=== PATIENT | male | born 1960 ===

== ENCOUNTER 2019-10-22 11:34 | Inpatient (IN) ==
--- NOTE | 2019-10-12 10:36 | Anesthesiology Consultation ---
Date of Service October 12, 2019 Assessment & Plan (1) Encounter for pre-operative examination: Per PAT assessment on 10/11: Travel screen- took mother to oncology appt in [place] 1 week ago (followed COVID precaution guidelines diligently). No travel plans plans prior to surgery. No known COVID-19 positive contacts. No current COVID-19 related symptoms. Surgeon arranging preop COVID testing (10/16, at surgeon's office). Awaiting results. Chart Review Chart Review: Acceptable Risk for Surgery (pending surgeon-ordered PCP clearance scheduled 10/17 (Dr. Rollins)) and Patient seen in Pre Admission Testing Teaching & Discussion Pre-Anesthesia Teaching/Discussion Notes: Instructed NPO after midnight before surgery,except medications with 15 cc of water. Medication instructions provided according to the PAT guidelines. History Surgery Operation Date: 10/22/19 13:30 Proposed Procedures p Right Total Shoulder Arthroplasty - Gualberto Barlow MD Height/Weight Height: 5 ft 10 in Weight: 86.7 kg Allergies Allergy/AdvReac Type Severity Reaction Status Date / Time No Known Allergies Allergy Verified 10/10/19 13:22 Medications Home Medications Medication Instructions Recorded Confirmed Last Taken No Known Home Medications 10/10/19 10/10/19 Unknown Past Medical History Medical History History of basal cell carcinoma History of kidney stones Iron deficiency anemia Osteoarthritis Exercise / Class Metabolic Activity II 4-5 Yardwork/Stairs/Walk up hill Past Family History Family History Other No family history of adverse response to anesthesia Past Surgical History Surgical History History of arthroscopy of left knee History of cystoscopy w/ stone extraction History of Mohs micrographic surgery for skin cancer History of tooth extraction History of vasectomy Past Anesthesia History No Family Hx of Anesthesia Complications and Other ("slow to wake") History of PONV No Hx of Motion Sickness and History of PONV Social History Smoking Status: Never smoker Do You Dip or Chew Tobacco: No Hx Alcohol Use: No Hx Substance Use: No substance use type: does not use Review of Systems Patient denies chest pain, shortness of breath, dyspnea on exertion, cough, wheezing, palpitations. Physical Exam Vital Signs VITALS BP 124/70 P 50 (good functional status, asymptomatic) TEMP 98.1 SP02 98%RA RESP 18 PHYSICAL Full neck and c-spine range of motion. Full TMJ range of motion. TMD 3 finger breaths Mallampati Score 3 Dentition: full dentures upper/lower Lungs: clear throughout to auscultation Cardiac: regular rate and rhythm, no murmurs noted Spine: normal Carotid arteries: negative bruit Extremities: no edema Testing Laboratory Results 10/12/19 11:12 10/12/19 11:12 PT 11.1 Seconds (9.0-12.0) 10/12/19 11:12 INR 1.1 (0.9-1.1) 10/12/19 11:12 APTT 31.9 Seconds (21.0-31.0) H 10/12/19 11:12 Hemoglobin A1c 5.5 % (4.5-5.6) 10/12/19 11:12 Urine Color Yellow 10/12/19 11:12 Urine Appearance Clear (Clear) 10/12/19 11:12 Urine pH 5.0 (4.5-7.5) 10/12/19 11:12 Ur Specific Anderson 1.015 (1.000-1.030) 10/12/19 11:12 Urine Protein Negative (Negative) 10/12/19 11:12 Urine Glucose (UA) Negative (Negative) 10/12/19 11:12 Urine Ketones Negative (Negative) 10/12/19 11:12 Urine Nitrite Negative (Negative) 10/12/19 11:12 Ur Leukocyte Esterase Negative (Negative) 10/12/19 11:12 Blood Type O Positive 10/12/19 11:12 Antibody Screen NEGATIVE 10/12/19 11:12 Electrocardiogram Date: 10/12/19 SB at 47bpm. Chest X-Ray Date: 10/12/19 Findings: + NAD
[2019-10-12 11:51] LABS: Basophils # (auto) 0.04 K/uL (0-0.2); Basophils % (auto) 0.8 %; Eosinophils # (auto) 0.19 K/uL (0-0.5); Eosinophils % (auto) 3.8 %; Hematocrit (blood only) 39.3 % (42-52); Hemoglobin 13.4 g/dL (14.0-18.0); Lymphocytes # (auto) 2.12 K/uL (1.2-3.4); Lymphocytes % (auto) 42.7 %; Mean Corpuscular Hemoglobin 31.2 pg (25-34); Mean Corpuscular Hgb Conc 34.1 g/dL (32-36); Mean Corpuscular Volume 91.6 fL (80-100); Mean Platelet Volume 10.9 fL (7.4-10.4); Monocytes # (auto) 0.35 K/uL (0.11-0.59); Monocytes % (auto) 7.1 %; Neutrophils # (auto) 2.26 K/uL (1.4-6.5); Neutrophils % (auto) 45.6 %; Platelet Count 197 K/uL (130-400); RDW Standard Deviation 43.3 fL (36.4-46.3); Red Blood Count 4.29 M/uL (4.7-6.1); White Blood Count 4.96 K/uL (4.8-10.8)
--- NOTE | 2019-10-12 11:51 | XRay Report ---
XR chest Pre-admission PA/Lat CLINICAL HISTORY: Preoperative chest COMPARISON STUDY: No previous studies for comparison. FINDINGS: The cardiac and mediastinal contours are normal. There is no evidence of focal pulmonary co nsolidation. There is no evidence of failure. No pleural effusions are visualized.[ IMPRESSION: No active disease in the chest. ACT 112: Negative or not required by law. Electronically signed by: Luiz Gomez M.D. 10/12/2019 11:50 AM
[2019-10-12 12:00] LABS: Albumin Level 3.6 gm/dl (3.4-5.0); Appearance Urine Clear (Clear); BUN Creatinine Ratio 11.7 (10-20); Bilirubin Urine Negative (Negative); Blood Urine Negative (Negative); Calcium 8.6 mg/dl (8.5-10.1); Color Urine Yellow; Est GFR (Non-African American) 92.3; Glucose Urine UA Negative (Negative); Ketones Urine Negative (Negative); Leukocyte Esterase Urine Negative (Negative); Nitrite Urine Negative (Negative); Potassium 4.4 mmol/L (3.5-5.1); Protein Urine Negative (Negative); Specific Gravity Urine 1.015 (1.000-1.030); Urobilinogen Urine Negative (Negative)
[2019-10-12 12:03] LABS: INR 1.1 (0.9-1.1); Partial Thromboplastin Ratio 1.1; Partial Thromboplastin Time 31.9 Seconds (21.0-31.0); Prothrombin Time 11.1 Seconds (9.0-12.0)
[2019-10-12 12:24] LABS: Estimated Average Glucose 111 mg/dl; Hemoglobin A1C 5.5 % (4.5-5.6)
--- NOTE | 2019-10-12 13:30 | Electrocardiogram Report ---
Test Reason : Blood Pressure : / mmHG Vent. Rate : 047 BPM Atrial Rate : 047 BPM P-R Int : 178 ms QRS Dur : 100 ms QT Int : 466 ms P-R-T Axes : 076 083 039 degrees QTc Int : 412 ms Sinus bradycardia Otherwise normal ECG No previous ECGs available Confirmed by Ricardo Loredo ([id number]) on 10/12/2019 1:29:46 PM Referred By: Gualberto Barlow Confirmed By:Patel Loredo
--- NOTE | 2019-10-18 20:57 | History and Physical Report ---
DATE OF ADMISSION: 10/22/2019 CHIEF COMPLAINT: Chronic right shoulder pain. HISTORY OF PRESENT ILLNESS: This is a 59-year-old male patient of Dr. Barlow'betty complaining of chronic right shoulder pain since 2005 where he sustained an injury where a pipe fell on his shoulder. He also subsequently sustained another injury where a horse kicked him in 2017. He has had chronic right shoulder pain. He was diagnosed with end-stage osteoarthritis per clinical and radiographic exams. The patient failed conservative treatment and has elected to proceed with a right total shoulder arthroplasty. PAST MEDICAL HISTORY: Neck problems, dental issues, kidney stones, skin cancer. SOCIAL HISTORY: Nonsmoker, nondrinker. FAMILY HISTORY: Noncontributory. REVIEW OF SYSTEMS: Chronic right shoulder pain. Otherwise, denies any shortness of breath, chest pain, nausea, vomiting or any other joint complaints. MEDICATIONS: No regular medications. ALLERGIES: No known drug allergies. PAST SURGICAL HISTORY: Knee arthroscopy, cancer removal from forehead, and vasectomy. PHYSICAL EXAMINATION: GENERAL: Well-developed, well-nourished 59-year-old male in no acute distress. He is alert and oriented x3 and pleasant. HEENT: Normocephalic, atraumatic. Extraocular motions are intact. Pupils are equal and reactive to light. HEART: Regular rate and rhythm with a mild click. LUNGS: Clear. ABDOMEN: Soft and nontender. Bowel sounds present. EXTREMITIES: Right shoulder and upper extremity passive range of motion is full with pain and crepitation. He has 4+/5 strength with pain. Neurologically and neurovascularly he is intact in his right upper extremity. DIAGNOSES: Right shoulder end-stage osteoarthritis, history of a murmur, neck problems, dental issues, kidney stones, skin cancer. PLAN: The patient was advised of his diagnosis. Indications, risks, benefits, postop course have all been reviewed. The patient wished to proceed with a right total shoulder arthroplasty. Necessary consent forms, preoperative testing and clearances will be obtained.
[~2019-10-22 11:34] MED LIST: ACETAMINOPHEN 500 MG TAB PO SCH; BACITRACIN INJ 50,000 UNIT VIAL ONE; BUPIVACAINE/EPINEPHRINE 0.25% 1:200,000 30 ML VIAL ONE; CEFAZOLIN 2000MG 2,000 MG/15 ML SYR IV SCH; CeleBREX 200 MG CAP PO SCH; DEXAMETHASONE SOD INJ 4 MG/ML VIAL ONE; EPINEPHrine INJ 1 MG/ML AMP ONE; FAMOTIDINE 20 MG TAB PO SCH; GABAPENTIN 600 MG DOSE PO SCH; GLYCOPYRROLATE 0.2 MG/ML VIAL ONE; LR 15ML/HR IV SCH; METOCLOPRAMIDE HCL 10 MG TABLET PO SCH; MIDAZOLAM HCL 1 MG/ML 2ML VIAL ONE; NEOSTIGMINE METHYLSULFATE 5 MG/5 ML SYR ONE; ONDANSETRON INJ 2 MG/ML 2 ML VIAL ONE; PROPOFOL IV EMULSION 10 MG/ML 20 ML VIAL IV ONE; ROCURONIUM BROMIDE 10 MG/ML 5 ML VIAL IV ONE; dexAMETHasone 4 MG TAB PO SCH; fentaNYL citrate 100 MCG/2 ML VIAL ONE
--- OUTSIDE RECORDS SUMMARY | 2019-10-22 11:37 | External Medical Summary | Continuity of Care Document ---
:1960 Author Name Itzel Terry Address Unavailable Unavailable , Care Team Providers Name Role Phone Jaymie Terry Unavailable [email or web address] [place] RAMOS Unavailable Unavailable Unavailable Unavailable Unavailable Problems Dysuria (788.1) (R30.0) Right flank pain (789.09) (R10.9) Nephrolithiasis (592.0) (N20.0) Allergies and Adverse Reactions No Known Drug Allergies (Allergy) Medications No Reported Medications Refills: 0 Procedures Procedures not documented Immunizations Immunizations not documented Social History - Smoking Status Never smoked tobacco Plan of Treatment Planned Observations Planned Goals not documented Results No Known Results Results not documented Encounters Appointment; Ricardo Coon M.D. 13-Nov-2015 15:30 Encounter Diagnosis: Problem not documented
--- NOTE | 2019-10-22 13:02 | History & Physical Bridge Note ---
Date of Service October 22, 2019 History & Physical Bridge Note I have examined the patient, reviewed the History & Physical and in the interval since the performance of the History & Physical I have noted the following changes of clinical significance: no changes noted
[2019-10-22] MEDS ORDERED: PHENYLEPHRINE 100MCG/ML 5ML SYR ONE (13:58)
[2019-10-22] MEDS ORDERED: ONDANSETRON INJ 2 MG/ML 2 ML VIAL IV PRN ×2 (14:13→18:15)
[2019-10-22] MEDS ORDERED: ATROPINE SULFATE 0.1 MG/ML 10ML SYR IV PRN (14:13)
[2019-10-22] MEDS ORDERED: fentaNYL citrate 100 MCG/2 ML VIAL IV PRN (14:13)
[2019-10-22] MEDS ORDERED: ePHEDrine sulfate 50 MG/ML AMP IV PRN (14:13)
--- NOTE | 2019-10-22 16:46 | Post Operative Brief Note ---
Immediate Post Op Note v1 Date of Surgery October 22, 2019 Pre & Post Diagnosis Operation Date: 10/22/19 13:40 Pre-Op Diagnosis: Right Shoulder Degenerative joint disease, mild tendinopathy rotator cuff without complete tear, os acromiale Post-Op Diagnosis: Same, biceps tendinopathy I identified the patient and participated in the time-out.: Yes Procedure Operation Date: 10/22/19 13:40 Actual Procedures p Right Total Shoulder Arthroplasty(Right) with biceps tenodesis- Gualberto Barlow MD Surgeon Gualberto Barlow MD Dairy [employer] Operator Checo BLOUNT Estimated Blood Loss 40 Findings Consistent with Post-Op Diagnosis Specimens None Drains Hemovac Drain (dual trocar) Anesthesia Type General Regional Complications none Disposition Accompanied Patient To Recovery: No Disposition: Recovery Room Overlapping Procedure I was immediately available: during the entire case.
--- NOTE | 2019-10-22 17:26 | XRay Report ---
XR shoulder RT min 2V routine CLINICAL HISTORY: Post shoulder surgery COMPARISON: None FINDINGS: Right shoulder arthroplasty is noted. Surgical drain is in place. There are skin chava. There is no periprosthetic fracture or unexpected radiopaque foreign body. IMPRESSION: Expected findings following right shoulder arthroplasty. ACT 112: Negative or not required by law. Electronically signed by: Evert Felix M.D. 10/22/2019 5:25 PM
--- NOTE | 2019-10-22 17:28 | Anesthesiology Progress Note ---
Date of Service October 22, 2019 Anesthesia Post Procedure Vital Signs Vital Signs: Temp Pulse Pulse Resp BP Pulse Ox 10/22/19 17:25 74 15 149/70 H 98 10/22/19 17:15 78 14 164/81 H 97 10/22/19 17:05 81 16 148/69 H 98 10/22/19 16:55 79 20 164/74 H 98 10/22/19 16:49 36.5 C 87 23 146/83 H 99 10/22/19 12:53 56 L 16 114/77 98 10/22/19 12:22 36.6 C 51 L 16 123/77 99 Pain Intensity Right Shoulder: Pain Intensity: 0 Transfer of Care Handoff Completed per policy Notes Mental Status: alert / awake / arousable and participated in evaluation Patient Amnestic to Procedure: Yes Nausea / Vomiting: adequately controlled Pain: adequately controlled Airway Patency, RR, SpO2: stable & adequate BP & HR: stable & adequate Hydration State: stable & adequate Anesthetic Complications: no major complications apparent and Pt Satisfied with anesthetic care
[2019-10-22] MEDS: SODIUM CHLORIDE 0.9% 1000ML 1,000 ML IV SCH ×2 (17:55→23:54)
[2019-10-22] MEDS ORDERED: NALOXONE HCL 0.4 MG/1 ML VIAL/CARP IV PRN (18:15)
[2019-10-22] MEDS ORDERED: OXYCODONE HCL IR 5 MG TAB (IMMEDIATE RELEASE) PO PRN (18:15)
[2019-10-22] MEDS ORDERED: HYDROmorphone INJ 0.5 MG/0.5 ML SYR IV PRN (18:15)
[2019-10-22] MEDS ORDERED: MAGNESIUM HYDROXIDE SUSP 30 ML UDC PO PRN (18:15)
[2019-10-22] MEDS ORDERED: bisacodyL 10 MG SUPP PR PRN (18:15)
[2019-10-22] MEDS: CEFAZOLIN 2000MG 2,000 MG/15 ML SYR IV SCH (21:13)
[2019-10-22] MEDS: DOCUSATE SODIUM 100 MG CAP PO SCH (21:14)
[2019-10-22] MEDS: ACETAMINOPHEN 500 MG TAB PO SCH (21:15)
--- NOTE | 2019-10-23 02:27 | Operative Report (OR) ---
DATE OF OPERATION: 10/22/2019 INDICATION FOR PROCEDURE: The patient is a 59-year-old male with chronic progressive right shoulder pain with failure of conservative management. He was worked up with x-rays and MRI demonstrating that he has end-stage glenohumeral osteoarthritis, [id number] in glenohumeral joint. I has some retroversion of the glenoid with a B2 to B3 type shape to his glenoid. He has no major bone loss noted. There is only minor posterior subluxation of humeral head. There was some rotator cuff tendinopathy, possible partial tearing, but no full thickness rotator cuff tear. The patient lives an active lifestyle and does lifting on a regular basis. Also, patient has an os acromiale, which is asymptomatic, there is some AC joint osteoarthritis associated with the os acromiale, which is a small meso-acromion type os acromiale . PREOPERATIVE DIAGNOSES: Right shoulder end-stage glenohumeral osteoarthritis with rotator cuff tendinopathy without evidence of any full thickness rotator cuff tear with os acromiale asymptomatic. POSTOPERATIVE DIAGNOSES: Right shoulder end-stage glenohumeral osteoarthritis with rotator cuff tendinopathy without evidence of any full thickness rotator cuff tear with os acromiale asymptomatic with biceps tendinopathy. PROCEDURE: Right total shoulder arthroplasty using the OVOMotion total shoulder arthroplasty system with resurfacing humeral head and in lay glenoid components including a biceps tenodesis, right shoulder. SURGEON: Gualberto Barlow MD HELP DESK TECHNICIAN: Checo Pike PA-C. ANESTHESIA: Regional block and general. OPERATIVE PROCEDURE: The patient was taken to the operating room, anesthetized under regional block and general anesthetic. He was positioned on a 30 degree beachchair position on the operating room table. A towel roll was placed on the medial border of his right scapula. He was translated to right side of the bed, so his shoulder could be manipulated off the bed as necessary. His head was placed on a foam headrest and protective eyewear placed. TEDs and SCDs. Right shoulder exam demonstrated 150 degrees of forward elevation with 80 degrees of abduction, and 15 degrees of external rotation and 40 degrees of internal rotation [id number] crepitation. Right shoulder was sterilely prepped and draped with ChloraPrep. The patient had preoperative antibiotics. An anterior deltopectoral approach was performed. Skin was incised longitudinally in deltopectoral interval. Subcutaneous flaps were elevated and the cephalic vein was dissected out and retracted laterally with the deltoid. The upper centimeter of the pectoralis was released for inferior exposure and the biceps tendon was identified and there was chronic biceps tenosynovitis in the bicipital groove. The chronic tenosynovium was excised and the biceps was tenodesed to the pectoralis tendon with several interrupted xfcukj-ko-dujwe sutures using #2 FiberWire and the proximal biceps was resected. The patient had an aberrant muscle that went from inferior to superior coursing across the subscapularis. This was superficial to the circumflex vessels. Circumflex vessels were identified inferiorly, tied off with silk ties and divided laterally. An aberrant muscle was divided to split the subscapularis just cephalad to the circumflex vessels. Dissection was taken down to the capsule and a Kitner elevator was used to elevate the muscle subscapularis off the capsule, identified the axillary nerve inferiorly with a tug test and protected with a blunt Hohmann retractor. The rotator interval was opened up. The fluid in the joint was evacuated. There was chronic synovitis in the joint. This was opened up and divided laterally and medially down to the glenoid. The subscapularis was then taken down leaving a cuff of tissue about a centimeter on the lesser tuberosity for repair at the end of the procedure. A #1 Vicryl traction suture was placed in the subscapularis tendon edge. Then a subperiosteal dissection was performed taking down the subscapularis and capsule off the inferior neck of the humerus and a large inferior osteophyte was identified and resected with an artist chisel from anterior to posterior. The capsule was released off the neck using a Justice elevator. The humeral head was then retracted posterior to the glenoid and we were able to remove the remainder of the biceps tendon, which was widened, thickened and had chronic tendinopathy. The degenerative glenoid labrum was resected circumferentially. The 360 degree release was performed around the subscapularis. A Bankart retractor was placed anteriorly. The glenum was inspected and the patient had more of a type B2 to B3 glenoid with chronic erosion, very small ridge, very anterior just about 6 mm from the anterior edge of the glenoid. There is still some articular cartilage anteriorly. A posterior aspect of the glenoid was all eburnated bone. There were some anterior osteophytes that were resected. The cartilage on the glenoid was curetted off and the ridge was curetted down slightly smoother in order to prepare the glenoid. Attention was taken back to the humeral head. We exposed the humeral head and measured it for the Arthrosurface OVOMotion total shoulder resurfacing head. The guides were used and the best size was felt to be a 56 x 52 oval head. The guide for the central reaming pin was placed. The central pin was placed. The reamer for the head was used. The excess bone around the edges of the reaming and remaining osteophytes were resected circumferentially with a rongeur and also irrigated out. The tapered reaming guide was drilled over the guide pin to the appropriate depth. The humeral head resection device to flatten out the humeral head was then used down bottoming it out on the reaming guide, flattening of the humeral head. The pins were removed and the section of remaining bone was removed with an oscillating saw. At this point, humerus was prepared and now able to be retracted posterior to the glenoid with retractors to better visualize the glenoid for preparing the glenoid component. At this time, we chose to place the inlay glenoid component size 19 x 20 mm. The guide was placed. The guide pin was then used, the 2 reamers were used, depth gauge was used. The central drill hole for the peg was used followed by cement drill holes, followed by copious irrigation and then the Palacos cement was vacuum mixed. We did pack epinephrine tampons into the reamed surface, held pressure while the cement was prepared. Then the inlay glenoid was cemented in position, placed in position with the suction holding device. Suction was let off, the implant was held in place and impacted in with the impactor. The excess cement was cleared. The implant was flushed with the surface, remainder of the glenoid. The inlay glenoid component was held in position until the cement cured. Final component was the articular 19 x 20 mm Arthrosurface inlay glenoid. After cement cured, then we went ahead and irrigated out the glenohumeral joint again. I then proceeded to drill our holes for the subscap repair, passed #5 FiberWire sutures with large curved needles. I then placed on the guide for the screw placement. The guide pin was placed back in place. The drill, followed by insertion device for the central screw was placed and the central screw was screwed tightly in with the appropriate screwdriver to the appropriate depth. After copious irrigation, the Joshi taper of the screw was dried and then the final humeral component which is the OVOMotion Arthrosurface 56 x 52 humeral component was impacted onto the Joshi taper with tight pressfit. The humeral head was assessed and stable. Reduction was performed to the glenoid. We assessed stability of the shoulder. It was stable through an excellent passive range of motion. The wound and joint were copiously irrigated with antibiotic solution with bacitracin. Then, the subscapularis was repaired with #2 FiberWire sutures placed using Marcus-Willam suture technique followed by mhimkv-kn-gwzos #2 FiberWire sutures, including the rotator interval closed with interrupted #2 FiberWire sutures and there was some attenuation of the supraspinatus tendon, there was some tendinopathy and we did a soft tissue dovjmv-qm-trqnd repair in that area to pull the thick portion of the tendon together. The rotator cuff was completely repaired well. The range of motion was assessed and the patient had forward elevation to 150 degrees, abduction to 100 degrees, external rotation to 45 degrees without any tension on the subscapularis repair. There is no subluxation with range of motion and the implant was stable. After further irrigation, the pectoralis tendon was repaired with [id number]-[id number] #2 FiberWire sutures reinforcing the biceps tenodesis as well. Then, 2 Hemovac drains were placed and then the deltopectoral interval was repaired with rvyaoh-xf-immoe #1 Vicryl sutures. The subcutaneous tissue was closed with interrupted 2-0 Vicryl sutures, skin closed with chava. Sterile dressings were applied and sling immobilizer. JOSE ALEJANDRO Aleman was my business services assistant. He functioned as business services assistant for the entire procedure. He assisted in prepping, draping, arm positioning, soft tissue retraction, instrument management during the procedure and he performed the subcutaneous and skin closure and will participate in postoperative care of the patient. I attest to the content of the Intraoperative Record and any orders documented therein. Any exceptions are noted below. KARLOS
[2019-10-23] MEDS: CEFAZOLIN 2000MG 2,000 MG/15 ML SYR IV SCH (05:04)
[2019-10-23] MEDS: ACETAMINOPHEN 500 MG TAB PO SCH ×2 (05:04→13:16)
[2019-10-23 06:19] LABS: Basophils # (auto) 0.01 K/uL (0-0.2); Basophils % (auto) 0.1 %; Hematocrit (blood only) 35.7 % (42-52); Hemoglobin 12.3 g/dL (14.0-18.0); Immature Granulocytes # (auto) 0.01 K/uL (0.00-0.02); Immature Granulocytes % (auto) 0.1 %; Lymphocytes # (auto) 1.32 K/uL (1.2-3.4); Lymphocytes % (auto) 14.3 %; Mean Corpuscular Hemoglobin 31.3 pg (25-34); Mean Corpuscular Hgb Conc 34.5 g/dL (32-36); Mean Corpuscular Volume 90.8 fL (80-100); Mean Platelet Volume 11.2 fL (7.4-10.4); Monocytes # (auto) 0.65 K/uL (0.11-0.59); Neutrophils # (auto) 7.23 K/uL (1.4-6.5); Neutrophils % (auto) 78.5 %; Platelet Count 205 K/uL (130-400); RDW Coefficient of Variation 12.8 % (11.5-14.5); RDW Standard Deviation 42.4 fL (36.4-46.3); Red Blood Count 3.93 M/uL (4.7-6.1); White Blood Count 9.22 K/uL (4.8-10.8)
[2019-10-23 06:53] LABS: BUN Creatinine Ratio 15.2 (10-20); Calcium 8.3 mg/dl (8.5-10.1); Creatinine Clr Calc Pharmacy 95.4 ml/min; Est GFR (African American) 109.5; Est GFR (Non-African American) 94.5; Potassium 4.3 mmol/L (3.5-5.1)
--- NOTE | 2019-10-23 08:00 | Orthopedic Progress Note ---
Date of Service October 23, 2019 Assessment & Plan (1) Calcific tendinitis of right shoulder: (2) Arthritis of right shoulder region: POD #1, Right TSA PT/ OT DVT proph- ASA D/C planning- home today after 1500 if pain controlled. Admission and Anticipated Discharge Date Admission Date: October 22, 2019 Subjective POD #1, Feeling well. Pain controlled well at this point, nerve block may still be on board. Denies SOB, CP. N/V. Wishes OPPT on D/C. Physical Exam Physical Exam: Right shoulder dressings c/d/i, no drainage. Fingers mobile sling in tact. A&Ox3 VSS Results & Data ([facility]) Vital Signs (Past 12 Hours) Vital Signs Temp Pulse Resp BP Pulse Ox 10/23/19 07:08 36.9 C 54 L 16 114/69 98 10/23/19 03:00 36.9 C 60 16 94/55 L 95 10/22/19 22:56 36.8 C 72 16 107/57 L 96 10/22/19 20:55 36.5 C 70 16 115/65 96
[2019-10-23] MEDS ORDERED: ASPIRIN 81 MG ECTAB PO SCH (09:00)
[2019-10-23] MEDS ORDERED: MULTIVITAMIN TAB PO SCH (09:00)
[2019-10-23] MEDS: DOCUSATE SODIUM 100 MG CAP PO SCH (09:23)
--- NOTE | 2019-10-27 02:50 | Discharge Summary (DS) ---
DISCHARGE DIAGNOSIS: Degenerative joint disease, right shoulder. SECONDARY DIAGNOSES: Cervical spine problems in the past, history of renal calculi, skin carcinoma in the past, dental issues. CONSULTATIONS: None. COMPLICATIONS: None. PROCEDURES: Right total shoulder arthroplasty. BRIEF HISTORY: As dictated in the history and physical. HOSPITAL SUMMARY: The patient was admitted on the above-noted date and had the above-noted surgery performed, which he tolerated well. On the first postoperative day, his pain was controlled. At that point, nerve block was still working fairly well. He had no complaints and denied shortness of breath, chest pain, nausea, or vomiting, and he was hoping for outpatient PT upon discharge. Dressings were clean, dry and intact. Fingers were mobile. Sling was intact. Vital signs were stable. He was started on PT and OT protocols and continued on DVT prophylaxis. Was otherwise remaining stable and it was felt he could be discharged to home. For further review, please see chart. LABORATORY AND X-RAY DATA: As per chart. DISCHARGE INSTRUCTIONS: The patient was discharged to home in satisfactory condition on 10/23/2019. DIET: Regular. ACTIVITY: Follow total shoulder arthroplasty instructions and special care instructions as noted. Follow up with Dr. Barlow in 12-14 days from the day of surgery. The patient to call for appointment if one has not been made for you. DISCHARGE MEDICATIONS: Acetaminophen 1000 mg p.o. q. 8 hours, aspirin 81 mg p.o. daily, and oxycodone 5 mg p.o. q. 4 hours p.r.n.
--- NOTE | 2019-10-27 07:46 | Coding Query ---
CODING QUERY To promote full compliance with coding requirements relating to patient care, provider participation is requested in all cases of demurrage worker uncertainty. Please assist us with the question(s) below: Coding Question(s): The H&P indicates previous injury however the type of osteoarthritis remains unspecified. Please clarify below the type of osteoarthritis (ie primary, post- traumatic, etc.). Thank you. Physician's Response(s): primary osteoarthritis ,possible aggravation by other injuries. Thank you Allegra Shipman Principal Diagnosis: "that condition established after study, to be chiefly responsible for occasioning the admission of the patient to the hospital for care." Co-Existing Principal Diagnosis: "when two or more diagnoses equally meet the criteria for principal diagnosis as determined by the circumstances of admission, diagnostic work up, and/or therapy provided, and the Alphabetic Index, Tabular List, or another coding guideline does not provide sequencing direction, any one of the diagnoses may be sequenced first." "When the physician has documented what appears to be a current diagnosis in the body of the record, but has not included the diagnosis in the final diagnostic statement, the physician should be asked whether the diagnosis should be added." (Source Coding [facility] 2 QTR90. p3-4) KARLOS
== END 2019-10-23 13:39 | disposition home or self-care (01) | DRG 483 ==
LOC: ASU 11:34 → 3W 16:55